=== PATIENT | female | born 1940 ===

== ENCOUNTER 2025-03-23 08:42 | Outpatient (CLI) | payer OTHER ==
[2025-03-23 10:46] LABS: CREATININE SERUM 0.84 mg/dL (0.55-1.02)
== END 2025-03-23 08:46 | disposition home or self-care (01) ==
LOC: LAB 08:42
PROVIDERS: ATTEND Radiology Diagnostic Radiology
DX: R10.30 Lower abdominal pain, unspecified (principal)